=== PATIENT | female | born 1940 | race Caucasian/White ===

== ENCOUNTER 2017-06-25 13:35 | Outpatient (CLI) | payer MEDICARE, OTHER ==
[~2017-06-25 13:35] MED LIST: ALBU18HF2 IH; ALBU2.5V38 IH; AMLO5TAB4 PO; ASPI-991 PO; CALC1TAB38 PO; CYAN1TAB43 PO; ESTR0.3T3 PO; FLUT10.62 IH; FLUT1DIS28 IH; GLUC1TAB39 PO; GUAI600T PO; LATA2.5D2 OP; LEVO500T15 PO; MELO-264 PO; MONT10TA22 PO; OLME40TA3 PO; PRED50TA PO; WILD SALMON OIL PO
== END 2017-06-25 23:59 | disposition home or self-care (01) ==
LOC: RAD 13:35
PROVIDERS: ATTEND Family Medicine
DX: I70.0 Atherosclerosis of aorta (principal); M47.894 Other spondylosis, thoracic region
CPT/HCPCS: 71020-TC

== ENCOUNTER 2017-07-04 09:04 | Outpatient (CLI) | payer MEDICARE, OTHER | END 2017-07-04 23:59 | disposition home or self-care (01) | LOC: NM 09:04 | PROVIDERS: ATTEND Internal Medicine Cardiovascular Disease | DX: R07.9 Chest pain, unspecified (principal); R06.02 Shortness of breath; I10 Essential (primary) hypertension | CPT/HCPCS: 78452; A9502 ==